=== PATIENT | female | born 1945 | race African-American/Black ===

== ENCOUNTER 2019-03-30 19:49 | Inpatient (IN) | payer MEDICARE, MEDICAID ==
[~2019-03-30] VITALS: Ht 165.1 cm; Wt 82.6 kg
[~2019-03-30 19:49] MED LIST: B50 PO; CLON0.5T PO; CLON1TAB PO; DULO30CA2 PO; HYDR-3927 PO; HYOS-16 SL; METO50TA95; POTA8CAP20; PREG75CA PO; RIFA550T PO; ROSU20TA2; [UNRECOGNIZED DRUG - CODE] PO
[2019-03-30] MEDS ORDERED: CEFTRIAXONE 1 G PREMIX 50 ML IV ONE (21:00)
[2019-03-30] MEDS ORDERED: SODIUM CHLORIDE 0.9% 1000ML BAG (SEPSIS BOLUS) IV ONE (21:00)
[2019-03-30 21:11] LABS: BASOPHILS % 0.3 % (0.0-2.0); EOSINOPHILS % 0.2 % (0.0-5.0); LYMPHOCYTES % 12.9 % (20.0-50.0); MEAN CORPUSCULAR HEMOGLOBIN 22.6 pg (28.0-32.0); MEAN CORPUSCULAR VOLUME 77.9 fL (81.0-99.0); MONOCYTES % 8.5 % (2.0-8.0); NEUTROPHILS % 78.1 % (40.0-76.0); PLATELET 237 x1000/uL (130-400); RED BLOOD CELL COUNT 1.56 mill/uL (4.2-5.4); RED CELL DISTRIBUTION WIDTH 19.3 % (11.6-14.6)
[2019-03-30 21:12] LABS: HEMATOCRIT. 12.1 % (36.0-48.0); HEMOGLOBIN. 3.5 g/dL (12.0-16.0)
[2019-03-30 21:16] LABS: CHLORIDE 106 mEq/L (98-107)
[2019-03-30 21:17] LABS: INR 1.1; PROTHROMBIN TIME 11.7 sec (9.6-11.0)
[2019-03-30] MEDS ORDERED: FAMOTIDINE 20MG/2ML VIAL IV ONE (22:30)
[2019-03-30] MEDS ORDERED: PANTOPRAZOLE SODIUM 40 MG/VIAL IV ONE (22:30)
[2019-03-30] MEDS ORDERED: VISCOUS LIDOCAINE 2% 15 ML UDC PO ONE (22:30)
[2019-03-30] MEDS ORDERED: MAGNESIUM/ALUMINUM HYDROXIDE/SIMETHICONE 30ML UDC PO ONE (22:30)
[2019-03-31] VITALS (32 sets, daily range): BP systolic 82–139; BP diastolic 23–94
[2019-03-31] MEDS ORDERED: LORAZEPAM 2MG/ML CPJ IV PRN ×2 (01:00→07:45)
[2019-03-31] MEDS ORDERED: CEFTRIAXONE 1 G PREMIX 50 ML IV SCH ×2 (03:45→21:00)
[2019-03-31] MEDS ORDERED: ONDANSETRON HCL 4MG/2ML INJ IV PRN (03:45)
[2019-03-31] MEDS ORDERED: OCTREOTIDE 1,000 MCG in SODIUM CHLORIDE 0.9% 100 ML IV SCH (05:00)
[2019-03-31] MEDS: SODIUM CHLORIDE 0.9% 1,000 ML IV SCH ×2 (05:23→12:33)
[2019-03-31 05:48] LABS: BASOPHILS % 0.1 % (0.0-2.0); LYMPHOCYTES % 9.7 % (20.0-50.0); MEAN CORPUSCULAR VOLUME 81.4 fL (81.0-99.0); MEAN PLATELET VOLUME 8.7 fl (7.4-10.4); MONOCYTES % 10.2 % (2.0-8.0); PLATELET 225 x1000/uL (130-400); RED BLOOD CELL COUNT 2.17 mill/uL (4.2-5.4)
[2019-03-31 06:14] LABS: HEMOGLOBIN. 5.4 g/dL (12.0-16.0)
[2019-03-31 06:15] LABS: HEMATOCRIT. 17.7 % (36.0-48.0)
[2019-03-31] MEDS: MORPHINE SULFATE 2 MG/ML CPJ (NOT FOR IM USE) IV PRN ×4 (07:52→21:54)
[2019-03-31] MEDS ORDERED: PANTOPRAZOLE SODIUM 40 MG/VIAL IV SCH (09:00)
[2019-03-31] MEDS: PANTOPRAZOLE SODIUM 40 MG/VIAL IV SCH ×3 (09:05→18:36)
[2019-03-31 12:46] LABS: HEMATOCRIT 24.4 % (36.0-48.0); HEMOGLOBIN 7.9 g/dL (12.0-16.0); MEAN CORPUSCULAR HEMOGLOBIN 26.9 pg (28.0-32.0); MEAN CORPUSCULAR VOLUME 82.8 fL (81.0-99.0); PLATELET 186 x1000/uL (130-400); RED BLOOD CELL COUNT 2.95 mill/uL (4.2-5.4); RED CELL DISTRIBUTION WIDTH 18.5 % (11.6-14.6)
[2019-03-31] MEDS ORDERED: METO-539 PO (17:01)
[2019-03-31] MEDS ORDERED: DICY10CA88 PO (17:01)
[2019-03-31] MEDS ORDERED: BENZ100C86 PO (17:01)
[2019-03-31] MEDS ORDERED: LORA10TA7 PO (17:01)
[2019-03-31] MEDS ORDERED: B25 PO (17:01)
[2019-03-31] MEDS ORDERED: ONDA4TAB11 PO (17:01)
[2019-03-31] MEDS ORDERED: GABA-531 PO (17:01)
[2019-03-31] MEDS ORDERED: FLUT15.88 BOTHNSTRLS (17:01)
[2019-03-31] MEDS ORDERED: TIZA2TAB5 MT (17:01)
[2019-03-31 17:46] LABS: *AMPHETAMINES SCREEN URINE NEGATIVE (NEGATIVE); *BARBITURATES SCREEN URINE NEGATIVE (NEGATIVE); *BENZODIAZEPINES SCREEN URINE NEGATIVE (NEGATIVE); *COCAINE SCREEN URINE NEGATIVE (NEGATIVE); CANNABINOID URINE SCREEN NEGATIVE (NEGATIVE); METHADONE URINE SCREEN NEGATIVE (NEGATIVE); OPIATES URINE SCREEN PRESUMTIVE POSITIVE (NEGATIVE); PHENCYCLIDINE URINE SCREEN NEGATIVE (NEGATIVE)
[2019-04-01 00:06] LABS: HEMATOCRIT 25.9 % (36.0-48.0); HEMOGLOBIN 8.2 g/dL (12.0-16.0)
[2019-04-01 00:59] LABS: TOTAL IRON BINDING CAPACITY 608 ug/dL (250-450)
[2019-04-01] MEDS: MORPHINE SULFATE 2 MG/ML CPJ (NOT FOR IM USE) IV PRN ×2 (01:43→11:01)
[2019-04-01 07:10] LABS: BASOPHILS % 0.6 % (0.0-2.0); EOSINOPHILS % 0.3 % (0.0-5.0); HEMATOCRIT. 26.5 % (36.0-48.0); HEMOGLOBIN. 8.5 g/dL (12.0-16.0); LYMPHOCYTES % 15.9 % (20.0-50.0); MEAN CORPUSCULAR HEMOGLOBIN 26.4 pg (28.0-32.0); MEAN CORPUSCULAR VOLUME 82.4 fL (81.0-99.0); MEAN PLATELET VOLUME 9.2 fl (7.4-10.4); MONOCYTES % 10.5 % (2.0-8.0); NEUTROPHILS % 72.7 % (40.0-76.0); PLATELET 221 x1000/uL (130-400); RED BLOOD CELL COUNT 3.22 mill/uL (4.2-5.4); RED CELL DISTRIBUTION WIDTH 18.7 % (11.6-14.6)
[2019-04-01 07:14] LABS: CHLORIDE 111 mEq/L (98-107)
[2019-04-01] MEDS ORDERED: POTASSIUM CHLORIDE 20MEQ TABLET SR PO SCH (07:30)
[2019-04-01 08:00] VITALS: BP 123/61
[2019-04-01] MEDS: PANTOPRAZOLE SODIUM 40 MG/VIAL IV SCH (08:25)
[2019-04-01 12:00] VITALS: BP 118/68
[2019-04-01] MEDS ORDERED: HYDROCODONE/ACETAMINOPHEN 10/325MG TABLET PO SCH (12:15)
[2019-04-01 13:52] VITALS: BP 121/83
== END 2019-04-01 16:50 | disposition left against medical advice (07) | DRG 377 ==
LOC: ER 20:54 → EDBEDREQTM 23:50 → EDBEDREQSVC 23:50 → EDBEDREQ 23:50 → MICUNO 23:52 → EDBEDREQSVC 23:54 → EDBEDREQTM 23:54 → EDBEDREQ 23:56 → ENRESERV 03-31 02:03 → 8WST 03-31 14:02
PROVIDERS: ADMIT Internal Medicine; ATTEND Internal Medicine
PROC: 30233N1 Transfusion of Nonautologous Red Blood Cells into Peripheral Vein, Percutaneous Approach (ICD-10-PCS; principal; 2019-03-30)
DX: K92.2 Gastrointestinal hemorrhage, unspecified (principal); N17.0 Acute kidney failure with tubular necrosis; R57.8 Other shock; E44.0 Moderate protein-calorie malnutrition; E87.2 Acidosis; G89.29 Other chronic pain; M54.5 Low back pain; K21.9 Gastro-esophageal reflux disease without esophagitis; D64.9 Anemia, unspecified; Z53.21 Procedure and treatment not carried out due to patient leaving prior to being seen by health care provider; E66.9 Obesity, unspecified; I95.9 Hypotension, unspecified; E89.0 Postprocedural hypothyroidism; I10 Essential (primary) hypertension; I25.10 Atherosclerotic heart disease of native coronary artery without angina pectoris; Z90.710 Acquired absence of both cervix and uterus; Z86.73 Personal history of transient ischemic attack (TIA), and cerebral infarction without residual deficits; Z90.49 Acquired absence of other specified parts of digestive tract; Z68.30 Body mass index [BMI] 30.0-30.9, adult; Z88.2 Allergy status to sulfonamides; Z98.51 Tubal ligation status; Z71.3 Dietary counseling and surveillance
CPT/HCPCS: 36415; 71045; 74176; 80048; 80305; 82728; 83540; 83550; 83605; 84145; 84484; 85014; 85018; 85027; 86850; 86900; 86920; 93005; 93970; 99291; C1893; C9113; J0696; J2060; J2270; J2354; J3490; J7030; J7050; P9016

== ENCOUNTER 2020-06-05 18:41 | Emergency (ER) | payer MEDICARE, MEDICAID ==
[~2020-06-05] VITALS: Ht 172.7 cm; Wt 73.0 kg
[~2020-06-05 18:41] MED LIST changes: +B25 PO; +BENZ100C86 PO; +DICY10CA88 PO; +FLUT15.844 BOTHNSTRLS; +GABA-531 PO; +LORA10TA7 PO; +METO-539 PO; +ONDA4TAB11 PO; +TIZA2TAB5 MT
[2020-06-05 18:43] VITALS: BP 177/147
== END 2020-06-05 21:46 | disposition left against medical advice (07) ==
LOC: ER 18:41 → CANBEDREQ 23:44
DX: R41.82 Altered mental status, unspecified (principal); I10 Essential (primary) hypertension; Z88.2 Allergy status to sulfonamides; Z79.899 Other long term (current) drug therapy; Z86.73 Personal history of transient ischemic attack (TIA), and cerebral infarction without residual deficits
CPT/HCPCS: 93005; 99283